=== PATIENT | male | born 1955 | race Hispanic/Latino ===

== ENCOUNTER 2023-07-28 21:39 | Emergency (ER) | payer MEDICARE ==
[~2023-07-28] VITALS: Ht 167.6 cm; Wt 56.2 kg
[~2023-07-28 21:39] MED LIST: ASPIRIN EC81 MG PO
[2023-07-28] MEDS: METHYLPREDNISOLONE SOD SUCC 125 MG/2ML VIAL IV ONE (22:07)
[2023-07-28 22:19] LABS: BASOPHILS # (AUTO) 0.1 (0.0-0.1); EOSINOPHILS # (AUTO) 0.7 (0.0-0.4); HEMATOCRIT 42.1 % (38.2-49.6); HEMOGLOBIN 14.2 g/dL (14.0-18.0); LYMPHOCYTES # (AUTO) 1.7 (1.0-3.2); LYMPHOCYTES % 18.8 % (18.0-39.1); MEAN CORPUSCULAR HEMOGLOBIN 30.6 pg (28-32); MEAN CORPUSCULAR HGB CONC 33.7 g/dL (31-35); MEAN CORPUSCULAR VOLUME 90.7 fL (81-99); MONOCYTES # (AUTO) 0.8 (0.2-0.8); MONOCYTES % 9.3 % (4.4-11.3); NEUTROPHILS # (AUTO) 5.6 (2.1-6.9); NEUTROPHILS % 62.7 % (38.7-80.0); PLATELET COUNT 243 x10e3/uL (140-360); RED BLOOD COUNT 4.64 x10e6/uL (4.3-5.7); RED CELL DISTRIBUTION WIDTH 12.2 % (11.7-14.4)
[2023-07-28] MEDS: ALBUTEROL/IPRATROPIUM 3 ML NEB NEB ONE (22:26)
[2023-07-28 22:27] VITALS: PULSE 73; RESP 18; O2SAT 98
[2023-07-28 22:34] LABS: ALBUMIN 3.4 g/dL (3.5-5.0); ALBUMIN/GLOBULIN RATIO 0.6 (0.8-2.0); ANION GAP 13.8 mmol/L (8-16); BILIRUBIN,TOTAL 0.5 mg/dL (0.2-1.2); CALCIUM 9.4 mg/dL (8.4-10.2); CREATININE, SERUM 0.88 mg/dL (0.72-1.25); POTASSIUM 3.8 mmol/L (3.5-5.1); TOTAL PROTEIN 8.7 g/dL (6.5-8.1)
[2023-07-28 22:56] LABS: INFLUENZAE A&B ANTIGEN (RAPID) NEGATIVE (NEGATIVE); RESPIRATORY SYNC. VIRUS NEGATIVE (NEGATIVE)
[2023-07-28] MEDS ORDERED: PROVENTIL HFA6.7 GM INH (23:10)
[2023-07-28] MEDS ORDERED: BENZONATATE200 MG PO (23:10)
[2023-07-28] MEDS ORDERED: MEDROL4 M2 PO (23:10)
[2023-07-28 23:30] VITALS: BP 133/84; PULSE 73; RESP 38; TEMP 98.7; O2SAT 100
== END 2023-07-29 00:12 | disposition home or self-care (01) ==
LOC: ER 21:44
DX: J96.11 Chronic respiratory failure with hypoxia (principal); J84.10 Pulmonary fibrosis, unspecified; Z99.81 Dependence on supplemental oxygen; Z11.52 Encounter for screening for COVID-19; Z86.79 Personal history of other diseases of the circulatory system
CPT/HCPCS: 36415; 71045; 80053; 83880; 84484; 85025; 87400; 87420; 93005; 94640; 94799; 99284; J2919; U0002

== ENCOUNTER 2024-10-03 18:49 | Inpatient (IN) | payer MEDICARE ==
[~2024-10-03] VITALS: Ht 170.2 cm; Wt 62.6 kg
[2024-10-03] VITALS (10 sets, daily range): BP systolic 107–143; BP diastolic 75–91; PULSE 11–114; RESP 24–38; TEMP 97.5–98.1; O2SAT 94–100
[~2024-10-03 18:49] MED LIST changes: +BENZONATATE200 MG PO; +MEDROL4 M2 PO; +PROVENTIL HFA6.7 GM INH
[2024-10-03 19:29] LABS: BASOPHILS % 0.6 % (0.0-1.0); EOSINOPHILS % 0.4 % (0.0-6.0); LYMPHOCYTES % 9.2 % (18.0-39.1); MONOCYTES % 10.9 % (4.4-11.3); NEUTROPHILS % 78.2 % (38.7-80.0); RED CELL DISTRIBUTION WIDTH 11.9 % (11.7-14.4)
[2024-10-03 19:34] LABS: INR 1.03
[2024-10-03 19:41] LABS: EST GLOMERULAR FILTRATION RATE 95.0 ML/MIN (>=60)
[2024-10-03] MEDS: SODIUM CHLORIDE 0.9% 1000ML 1,910 ML IV SCH (20:00)
[2024-10-03] MEDS ORDERED: ONDANSETRON HCL INJ 2MG/ML 2ML 2 MG/ML VIAL IV PRN (21:45)
[2024-10-03] MEDS ORDERED: SODIUM CHLORIDE 0.9% 1000ML 1,000 ML IV SCH (21:45)
[2024-10-03] MEDS ORDERED: HYDRALAZINE HCL 20 MG/ML VIAL IV PRN (23:00)
[2024-10-03] MEDS ORDERED: DOCUSATE SODIUM 100 MG CAP PO PRN (23:00)
[2024-10-03] MEDS ORDERED: MELATONIN 3 MG TAB PO PRN (23:00)
[2024-10-03] MEDS ORDERED: MAGNESIUM/ALUMINUM/SIMETHICONE 30 ML UDC PO PRN (23:00)
[2024-10-03] MEDS ORDERED: ACETAMINOPHEN 325 MG TAB PO PRN (23:00)
[2024-10-03] MEDS: SODIUM CHLORIDE 0.9% 500ML 500 ML IV ONE (23:59)
[2024-10-03] MEDS: MUPIROCIN 2% OINT 22 GM TUBE TOP SCH (23:59)
[2024-10-04] VITALS (48 sets, daily range): BP systolic 75–142; BP diastolic 61–87; PULSE 72–110; RESP 15–43; TEMP 97.7–97.9; O2SAT 92–100
[2024-10-04] MEDS: IPRATROPIUM BROMIDE 0.02% 2.5 ML NEB NEB SCH (01:05)
[2024-10-04] MEDS: ALBUTEROL SULF 0.083% NEB SOLN 3 ML NEB NEB PRN (01:05)
[2024-10-04] MEDS: ALBUTEROL/IPRATROPIUM 3 ML NEB NEB ONE (01:05)
[2024-10-04 06:35] LABS: BASOPHILS % 0.1 % (0.0-1.0); EOSINOPHILS % 0.0 % (0.0-6.0); LYMPHOCYTES % 6.1 % (18.0-39.1); MONOCYTES % 0.9 % (4.4-11.3); NEUTROPHILS % 92.1 % (38.7-80.0); RED CELL DISTRIBUTION WIDTH 11.9 % (11.7-14.4)
[2024-10-04 07:08] LABS: EST GLOMERULAR FILTRATION RATE 100.0 ML/MIN (>=60)
[2024-10-04 07:21] LABS: HIV 1&2 AB SCREEN NON-REACTIVE (NONREACTIVE); HIV- 1 P24 AG SCREEN NON-REACTIVE (NONREACTIVE)
[2024-10-04] MEDS: MULTIVITAMINS/MINERALS TAB PO SCH (08:39)
[2024-10-04] MEDS: METHYLPREDNISOLONE SOD SUCC 125 MG/2ML VIAL IV SCH (08:39)
[2024-10-04] MEDS: METHYLPREDNISOLONE SOD SUCC 40 MG/ML VIAL 1ML IV SCH (09:15)
[2024-10-04 12:31] LABS: LEUKOCYTE ESTERASE ,URINE NEGATIVE (NEGATIVE); PROTEIN,URINE DIPSTICK 1+ (NEGATIVE); URINE UROBILINOGEN 0.2 mg/dL (0.2 - 1)
[2024-10-04 12:32] LABS: EPITHELIAL CELLS,URINE FEW /LPF
[2024-10-04] MEDS ORDERED: IOPAMIDOL 370 MG/ML 100 ML INFUS..BTL INJ ONE (14:05)
[2024-10-04] MEDS: ENOXAPARIN SOD INJ 40 MG/0.4 ML SYR SC SCH (16:58)
[2024-10-05] VITALS (25 sets, daily range): BP systolic 86–137; BP diastolic 60–103; PULSE 55–119; RESP 18–39; TEMP 97.8–98.9; O2SAT 66–100
[2024-10-05 06:19] LABS: BASOPHILS % 0.1 % (0.0-1.0); EOSINOPHILS % 0.0 % (0.0-6.0); LYMPHOCYTES % 5.6 % (18.0-39.1); MONOCYTES % 7.3 % (4.4-11.3); NEUTROPHILS % 86.4 % (38.7-80.0); RED CELL DISTRIBUTION WIDTH 12.0 % (11.7-14.4)
[2024-10-05 06:45] LABS: EST GLOMERULAR FILTRATION RATE 100.0 ML/MIN (>=60)
[2024-10-05] MEDS: GUAIFENESIN/DEXTROMETHORPHAN LIQD 5 ML UDC PO PRN (23:34)
[2024-10-06] VITALS (26 sets, daily range): BP systolic 89–132; BP diastolic 57–81; PULSE 63–95; RESP 17–33; TEMP 96.8–98; O2SAT 84–99
[2024-10-06] MEDS: METHYLPREDNISOLONE SOD SUCC 40 MG/ML VIAL 1ML IV SCH (08:22)
[2024-10-07] VITALS (33 sets, daily range): BP systolic 81–142; BP diastolic 52–97; PULSE 56–107; RESP 19–34; TEMP 97.1–97.9; O2SAT 88–99
[2024-10-07 06:23] LABS: BASOPHILS % 0.1 % (0.0-1.0); EOSINOPHILS % 0.5 % (0.0-6.0); LYMPHOCYTES % 18.2 % (18.0-39.1); MONOCYTES % 8.9 % (4.4-11.3); NEUTROPHILS % 71.0 % (38.7-80.0); RED CELL DISTRIBUTION WIDTH 12.1 % (11.7-14.4)
[2024-10-07 07:02] LABS: EST GLOMERULAR FILTRATION RATE 100.0 ML/MIN (>=60)
[2024-10-07] MEDS: SODIUM CHLORIDE 0.9% 250ML 250 ML ONE (20:16)
[2024-10-08] VITALS (30 sets, daily range): BP systolic 84–141; BP diastolic 51–88; PULSE 29–107; RESP 18–39; TEMP 97.7–98.7; O2SAT 76–100
[2024-10-08] MEDS: PREDNISONE 10 MG TAB PO SCH (08:04)
[2024-10-09] VITALS (20 sets, daily range): BP systolic 89–106; BP diastolic 54–69; PULSE 59–96; RESP 18–31; TEMP 97.9–98.4; O2SAT 84–100
[2024-10-09 06:15] LABS: EST GLOMERULAR FILTRATION RATE 98.0 ML/MIN (>=60)
== END 2024-10-09 18:41 | disposition home health service (06) | DRG 871 ==
LOC: ER 19:00 → ERHOLD 21:46 → ICU 22:10
PROVIDERS: ADMIT Internal Medicine; ATTEND Internal Medicine
PROC: 3E0333Z Introduction of Anti-inflammatory into Peripheral Vein, Percutaneous Approach (ICD-10-PCS; principal; 2024-10-03)
PROC: 5A09357 Assistance with Respiratory Ventilation, Less than 24 Consecutive Hours, Continuous Positive Airway Pressure (ICD-10-PCS; 2024-10-03)
DX: A41.9 Sepsis, unspecified organism (principal); J18.9 Pneumonia, unspecified organism; J96.21 Acute and chronic respiratory failure with hypoxia; E87.20 Acidosis, unspecified; E44.0 Moderate protein-calorie malnutrition; R65.20 Severe sepsis without septic shock; J84.89 Other specified interstitial pulmonary diseases; R62.7 Adult failure to thrive; I27.20 Pulmonary hypertension, unspecified; J84.10 Pulmonary fibrosis, unspecified; R53.81 Other malaise; D64.9 Anemia, unspecified; Z68.21 Body mass index [BMI] 21.0-21.9, adult; Z79.82 Long term (current) use of aspirin; Z87.74 Personal history of (corrected) congenital malformations of heart and circulatory system; Z86.73 Personal history of transient ischemic attack (TIA), and cerebral infarction without residual deficits; Z82.49 Family history of ischemic heart disease and other diseases of the circulatory system
CPT/HCPCS: 36415; 71045; 71260; 80048; 80053; 81001; 82948; 83605; 84443; 85014; 85018; 85025; 85610; 85730; 87040; 87086; 87390; 93005; 93306; 94640; 94660; 94799; 99252; 99284; G0433; G0435; J0696; J1650; J2919; J7030; J7040; J7050; J7512; Q9967

== ENCOUNTER 2024-12-02 17:28 | Inpatient (IN) | payer MEDICARE ==
[~2024-12-02] VITALS: Ht 170.2 cm; Wt 62.6 kg
[2024-12-02 18:11] LABS: BASOPHILS % 1.1 % (0.0-1.0); EOSINOPHILS % 7.7 % (0.0-6.0); LYMPHOCYTES % 18.7 % (18.0-39.1); MONOCYTES % 10.3 % (4.4-11.3); NEUTROPHILS % 61.8 % (38.7-80.0); RED CELL DISTRIBUTION WIDTH 12.7 % (11.7-14.4)
[2024-12-02] MEDS: METHYLPREDNISOLONE SOD SUCC 40 MG/ML VIAL 1ML IV SCH (18:32)
[2024-12-02] MEDS: SODIUM CHLORIDE 0.9% 1000ML 1,000 ML IV STA (18:32)
[2024-12-02] MEDS: ACETAMINOPHEN 325 MG TAB PO STA (18:32)
[2024-12-02 18:33] VITALS: PULSE 116; RESP 24; O2SAT 100
[2024-12-02 18:38] LABS: EST GLOMERULAR FILTRATION RATE 95.0 ML/MIN (>=60)
[2024-12-02] MEDS: ALBUTEROL/IPRATROPIUM 3 ML NEB NEB SCH (18:39)
[2024-12-02 20:14] LABS: CORONAVIRUS COVID-19 AG NEGATIVE (NEGATIVE)
[2024-12-02] MEDS ORDERED: ONDANSETRON HCL INJ 2MG/ML 2ML 2 MG/ML VIAL IV PRN (23:15)
[2024-12-02] MEDS ORDERED: DIPHENHYDRAMINE HCL 25 MG CAP PO PRN (23:15)
[2024-12-02] MEDS ORDERED: DOCUSATE SODIUM 100 MG CAP PO PRN (23:15)
[2024-12-02] MEDS ORDERED: HYDRALAZINE HCL 20 MG/ML VIAL IV PRN (23:15)
[2024-12-02] MEDS ORDERED: BENZONATATE 100 MG CAP PO PRN (23:15)
[2024-12-02] MEDS ORDERED: SIMETHICONE 80 MG CHEW PO PRN (23:15)
[2024-12-02] MEDS ORDERED: MELATONIN 5 MG TABLET PO PRN (23:15)
[2024-12-02] MEDS ORDERED: DEXTROSE 50% SYRINGE 50 ML IV PRN (23:15)
[2024-12-02] MEDS ORDERED: ALBUTEROL/IPRATROPIUM 3 ML NEB NEB PRN (23:15)
[2024-12-02] MEDS ORDERED: ACETAMINOPHEN 325 MG TAB PO PRN (23:15)
[2024-12-02] MEDS ORDERED: POTASSIUM CHLORIDE 20 MEQ TAB CR PO PRN (23:15)
[2024-12-03] VITALS (17 sets, daily range): BP systolic 96–140; BP diastolic 67–86; PULSE 57–108; RESP 18–33; TEMP 97.5–97.7; O2SAT 88–100
[2024-12-03 06:05] LABS: BASOPHILS % 0.1 % (0.0-1.0); EOSINOPHILS % 0.0 % (0.0-6.0); LYMPHOCYTES % 6.2 % (18.0-39.1); MONOCYTES % 0.3 % (4.4-11.3); NEUTROPHILS % 93.0 % (38.7-80.0); RED CELL DISTRIBUTION WIDTH 12.7 % (11.7-14.4)
[2024-12-03] MEDS ORDERED: SODIUM CHLORIDE 0.9% 1000ML 1,000 ML ONE (06:12)
[2024-12-03] MEDS: SODIUM CHLORIDE 0.9% 1000ML 1,000 ML IV STA (06:19)
[2024-12-03 06:20] LABS: EST GLOMERULAR FILTRATION RATE 98.0 ML/MIN (>=60)
[2024-12-03] MEDS: PANTOPRAZOLE SOD 40 MG TABEC PO SCH (07:30)
[2024-12-03] MEDS: ENOXAPARIN SOD INJ 40 MG/0.4 ML SYR SC SCH (17:20)
[2024-12-03] MEDS: METHYLPREDNISOLONE SOD SUCC 40 MG/ML VIAL 1ML IV SCH (20:47)
[2024-12-04] VITALS (12 sets, daily range): BP systolic 96–122; BP diastolic 66–79; PULSE 62–95; RESP 18–26; TEMP 97.3–97.7; O2SAT 95–100
[2024-12-04] MEDS: CEFTRIAXONE 2 GM in SODIUM CHLORIDE 0.9% 100 ML IV SCH (11:01)
[2024-12-04] MEDS: DOXYCYCLINE HYCLATE TABLET 100 MG TAB PO SCH (11:01)
[2024-12-05] VITALS (20 sets, daily range): BP systolic 94–123; BP diastolic 62–96; PULSE 65–93; RESP 14–27; TEMP 97.6–98.4; O2SAT 94–100
[2024-12-05 05:44] LABS: BASOPHILS % 0.1 % (0.0-1.0); EOSINOPHILS % 0.0 % (0.0-6.0); LYMPHOCYTES % 3.6 % (18.0-39.1); MONOCYTES % 1.5 % (4.4-11.3); NEUTROPHILS % 94.1 % (38.7-80.0); RED CELL DISTRIBUTION WIDTH 13.0 % (11.7-14.4)
[2024-12-05 07:04] LABS: EST GLOMERULAR FILTRATION RATE 99.0 ML/MIN (>=60)
[2024-12-05] MEDS: Vancomycin IV 1 GM in SODIUM CHLORIDE 0.9% 250ML 250 ML IV SCH (17:37)
[2024-12-06] VITALS (27 sets, daily range): BP systolic 89–115; BP diastolic 62–97; PULSE 60–88; RESP 12–31; TEMP 97.6–98.6; O2SAT 90–100
[2024-12-07] VITALS (30 sets, daily range): BP systolic 94–129; BP diastolic 64–86; PULSE 61–105; RESP 14–33; TEMP 97.5–98.3; O2SAT 91–100
[2024-12-07 04:46] LABS: BASOPHILS % 0.1 % (0.0-1.0); EOSINOPHILS % 0.0 % (0.0-6.0); LYMPHOCYTES % 5.9 % (18.0-39.1); MONOCYTES % 3.0 % (4.4-11.3); NEUTROPHILS % 89.7 % (38.7-80.0); RED CELL DISTRIBUTION WIDTH 12.9 % (11.7-14.4)
[2024-12-07 05:14] LABS: EST GLOMERULAR FILTRATION RATE 98.0 ML/MIN (>=60)
[2024-12-07] MEDS: SODIUM CHLORIDE 0.9% 500ML 500 ML ONE (09:22)
[2024-12-07] MEDS: PREDNISONE 20 MG TAB PO SCH (09:22)
[2024-12-07] MEDS: SODIUM CHLORIDE FLUSH 10 ML SYR INJ PRN (14:47)
[2024-12-08] VITALS (26 sets, daily range): BP systolic 86–119; BP diastolic 58–88; PULSE 63–99; RESP 17–25; TEMP 97.1–98.7; O2SAT 94–100
[2024-12-09] VITALS (8 sets, daily range): BP systolic 96–105; BP diastolic 69–72; PULSE 72–85; RESP 18–20; TEMP 97.5–98; O2SAT 72–100
== END 2024-12-09 20:30 | disposition home or self-care (01) | DRG 196 ==
LOC: ER 17:34 → ERHOLD 19:30 → IMCU 12-03 08:55 → ICU 12-05 21:47 → MED/SURG3 12-08 15:20
PROVIDERS: ADMIT Internal Medicine; ATTEND Internal Medicine
PROC: 3E0333Z Introduction of Anti-inflammatory into Peripheral Vein, Percutaneous Approach (ICD-10-PCS; principal; 2024-12-02)
DX: J84.10 Pulmonary fibrosis, unspecified (principal); J18.9 Pneumonia, unspecified organism; J96.21 Acute and chronic respiratory failure with hypoxia; J44.1 Chronic obstructive pulmonary disease with (acute) exacerbation; E44.0 Moderate protein-calorie malnutrition; N39.0 Urinary tract infection, site not specified; R62.7 Adult failure to thrive; J84.89 Other specified interstitial pulmonary diseases; D63.8 Anemia in other chronic diseases classified elsewhere; B96.5 Pseudomonas (aeruginosa) (mallei) (pseudomallei) as the cause of diseases classified elsewhere; Z99.81 Dependence on supplemental oxygen; Z68.21 Body mass index [BMI] 21.0-21.9, adult; Z11.52 Encounter for screening for COVID-19; Z74.01 Bed confinement status; Z79.82 Long term (current) use of aspirin; Z87.74 Personal history of (corrected) congenital malformations of heart and circulatory system
CPT/HCPCS: 36415; 71045; 80048; 80053; 80202; 82550; 82948; 83605; 83690; 83880; 84484; 85025; 87040; 87071; 87086; 87186; 87205; 93005; 94799; 99284; J0692; J0696; J1650; J2470; J2543; J2919; J3373; J7030; J7040; J7050; J7512